=== PATIENT | male | born 1995 | race Caucasian/White ===

== ENCOUNTER 2017-04-24 20:19 | Emergency (ER) | payer SELFPAY ==
[2017-04-24 20:26] VITALS: BP 148/85; PULSE 115; RESP 18; TEMP 97.9; O2SAT 95
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
[2017-04-24] MEDS ORDERED: OXYMETAZOLINE 30 ML NASAL SPRAY ONE (21:00)
== END 2017-04-24 22:05 | disposition left against medical advice (07) ==
DX: S02.2XXA Fracture of nasal bones, initial encounter for closed fracture (principal); F17.200 Nicotine dependence, unspecified, uncomplicated; W22.8XXA Striking against or struck by other objects, initial encounter; Y99.8 Other external cause status; Y93.01 Activity, walking, marching and hiking